=== PATIENT | male | born 1995 | race Two or more races ===

== ENCOUNTER 2022-06-05 11:18 | Emergency (ER) | payer BC ==
[~2022-06-05] VITALS: Ht 188 cm; Wt 83.9 kg
--- NOTE | 2022-06-05 11:31 | NUR ---
PT IN ROOM C/O RIB PAIN STRATED 2 HOURS AGO ALL OF A SUDDEN. RIGHT ARM IS NUMB, SOB CONNECTED TO BEDISDE MONITOR A/O X4 PAIN RATED 6/10 INITIALLY NOW 4/10 WORSE WITH AMBULATION.
--- NOTE | 2022-06-05 11:36 | NUR ---
[employer] AT BED SIDE
--- NOTE | 2022-06-05 11:36 | NUR ---
[employer] at bedside
--- NOTE | 2022-06-05 12:23 | NUR ---
Patient discharged to home in stable condition. Written and verbal after care instructions given. Patient verbalizes understanding of instruction.
[2022-06-05 12:24] VITALS: BP 111/84
== END 2022-06-05 12:24 | disposition home or self-care (01) ==
LOC: ER 11:18
DX: R07.89 Other chest pain (principal); Z60.2 Problems related to living alone
CPT/HCPCS: 71045-TC